=== PATIENT | female | born 1995 | race Caucasian/White ===

== ENCOUNTER 2018-08-31 19:40 | Outpatient (CLI) | payer MEDICAID, BC ==
[~2018-08-31] VITALS: Ht 165.1 cm; Wt 84.1 kg
--- NOTE | 2018-08-31 19:40 | NUR ---
G1 at 39week and 3 days presents to unit ambulatory with complaint of contractions every 5 and a half minutes. Pt reports that sometimes they feel a little painful but not enough to have her stop what she is doing. Pt was 1 cm in the office on the . Pt oriented to room and changed into gown. EFM and toco explained and applied. Admission assessment started. Vital signs obtained. 1944 SVE /-2
[2018-08-31] MEDS ORDERED: PRENATAL 191 CTB PO (19:54)
[2018-08-31] MEDS ORDERED: FERROUSAL325 MG PO (19:55)
[2018-08-31 20:00] VITALS: BP 133/80; PULSE 75; TEMP 97.7
[2018-08-31 20:30] VITALS: BP 123/79; PULSE 74
[2018-08-31 20:52] VITALS: BP 123/84; PULSE 86
--- NOTE | 2018-08-31 21:05 | NUR ---
SVE unchanged. Pt to discharge home at this time. Reviewed return precautions and discharge instructions. Pt verbalized understanding. Pt seen ambulating off unit with family.
== END 2018-08-31 21:05 | disposition home or self-care (01) ==
LOC: LDRO 19:40
DX: O62.9 Abnormality of forces of labor, unspecified (principal); Z3A.39 39 weeks gestation of pregnancy

== ENCOUNTER 2018-09-01 04:39 | Inpatient (IN) | payer BC, MEDICAID ==
[~2018-09-01] VITALS: Ht 165.1 cm; Wt 84.1 kg
[2018-09-01] VITALS (46 sets, daily range): BP systolic 99–196; BP diastolic 51–97; PULSE 63–139; TEMP 97.7–99.7
[~2018-09-01 04:39] MED LIST: FERROUSAL325 MG PO; PRENATAL 191 CTB PO
--- NOTE | 2018-09-01 04:50 | NUR ---
G1 at 39 weeks and 4 days arrives to unit ambulatory with complaint of contractions and bloody show. Pt was seen earlier in shift as a labor check and was discharged home after SVE /-2 x 2. Pt denies leaking of fluid and is having good movement. Pt denies headaches, blurry vision, or RUQ pain. Pt oriented to room and changed into gown. EFM and toco explained and applied. Vital signs obtained. Admission assessment started. Plan or care reviewed. 0500 SVE 2
[2018-09-01 07:28] LABS: BASO % 0.1 % (0.0-2.0); EOS # 0.1 (0.0-0.7); EOS % 0.5 % (0-4.0); GRAN # 11.4 (1.4-6.5); GRAN % 82.9 % (42.2-75.2); HEMATOCRIT 42.7 % (37.0-47.0); HEMOGLOBIN 13.9 g/dl (12.5-16.0); LYMPH # 1.2 (1.2-3.4); MEAN CELL VOLUME 89 fl (80.0-100.0); MEAN CORPUSCULAR HEMOGLOBIN 29 pg (27.0-31.0); MEAN CORPUSCULAR HGB CONC 33 g/dl (33.0-37.0); MEAN PLATELET VOLUME 9.9 fl (7.4-10.4); MONO # 0.9 (0.1-0.6); MONO % 6.7 % (1.7-9.3); PLATELET COUNT 273 K/mm3 (130-400); RED BLOOD COUNT 4.78 M/mm3 (4.10-5.30); REDCELL DISTRIBUTION WIDTH-CV 14.8 % (11.5-14.5)
--- NOTE | 2018-09-01 07:45 | NUR ---
0722- Pt asssited to sitting on side of bed for epidural placement. CRISTHIAN Munoz at bedside. Time out completed. 0724- FHR not tracing well due to maternal position. O2 sat monitor on and tracing maternal HR. 0733- Test dose by [facility] RO[employer] ATTENDANT, see anesthesia record. 0735- Pt assisted to semi-fowlers position with WL. EFM and TOCO on and tracing well. Pt tolerated procedure well.
--- NOTE | 2018-09-01 08:15 | NUR ---
0800- Pt assisted to LL with right leg up on stirrup.
--- NOTE | 2018-09-01 10:15 | NUR ---
1000- SVE by this RN, 9-/100/-1, Pt repositioned to RL with left leg up on stirrup. FHR decel noted down to 75bpm, lasting approximately 4mins. Pt repsoitioned to WL. IVF bolus initiated, O2 on at 10L via mask. Head of bed elevated. 1005- FHR noted back to baseline 115bpm.
--- NOTE | 2018-09-01 10:30 | NUR ---
1020- Dr Goodman at bedside. SVE with AROM, clear fluid noted, odorless. Pt complete, instructed by MD to begin pushing with UCs. Room prepped for delivery. 1030- Miner removed without difficutly. 1041- Pt begins pushing with UCs, this RN remains at bedside, coaches Pt through technique.
--- NOTE | 2018-09-01 11:45 | NUR ---
1131- FHR noted to be 70-85bpm, lasting approximately 80secs. Pt repositioned to WL with pillow, O2 on at 10L via mask. Pt insturcted to breathe through next UC to give baby a chance to recover, Pt tolerated well.
--- NOTE | 2018-09-01 12:00 | NUR ---
1150- This RN out to nurses station, Dr Goodman there, updated that baby is not moving well with pushing. Request MD to come evaluate. 1153- Pt continues pushing with UC. Dr Goodman performs vaginal exam. VO to start Pitocin at 2mu. 1155- Pitocin on and infusing at 2mu. MD out of room but remains on unit. This RN remains at bedside, assisting Pt with pushing.
--- NOTE | 2018-09-01 12:15 | NUR ---
1205- Pushing mirror brought to bedside per Pt request.
--- NOTE | 2018-09-01 13:20 | NUR ---
1307- Dr Goodman at nurses station, called to room for delivery. 1312- Carlos, Nursery RN at bedside. Pt and room prepped for delivery. Pt continues pushing with [facility]. 1320- of viable male infant. Placed on mother's abd where dried and stimulated, tended to by nursery. Pitocin off. Cord blood obtained. 1325- Spontaneous delivery of placenta, Pitocin started at 333ml/hr. Fundus massaged to firm by . 1st degree laceration repaired by . Pericare completed. Clean chux and ice pack to perineum. Bed put back together, Pt assisted sitting upwright in bed. Tolerated well. Bleeding WNL, VSS.
--- NOTE | 2018-09-01 14:55 | NUR ---
1445- Ice pack changed, Pt tolerated well.
--- NOTE | 2018-09-01 15:30 | NUR ---
1530- Pt ambulates to bathroom independently, unable to void at this time. Pericare explained and performed. Underwear, peripad on. Clean gown on. Pt ambulates to PP room without difficulty, oriented to room. Pt wishes to go to nursery to check on baby, ambulates with FOB. Pt tolerated well.
[2018-09-02 03:56] VITALS: BP 124/77; PULSE 78; TEMP 98.2
[2018-09-02 07:30] VITALS: BP 121/62; PULSE 92; TEMP 98.1
[2018-09-02] MEDS ORDERED: MOTRIN 800800 MG/TAB PO (08:47)
[2018-09-02] MEDS ORDERED: PERCOCET 325 MG1 TA2 PO (08:47)
[2018-09-02 11:30] VITALS: BP 119/67; PULSE 79; TEMP 98.5
[2018-09-02 22:00] VITALS: BP 113/61; PULSE 75; TEMP 98.3
[2018-09-03 08:18] VITALS: BP 115/80; PULSE 73; TEMP 98.5
--- NOTE | 2018-09-03 10:11 | NUR ---
Initial visit; Mom thanked Degree Clerk for offering congratulations and God's blessings for the of her son. Degree Clerk thanked family for choosing [facility].
--- NOTE | 2018-09-03 11:35 | NUR ---
1135- Discharge insturctions explained, Prescriptions given, Pt states she does not need Percocet since she has not been taking. Script taken and disposed of in shred box.
== END 2018-09-03 11:45 | disposition home or self-care (01) | DRG 807 ==
LOC: LDRO 04:39 → LDR 06:11 → OB 15:40
PROVIDERS: Obstetrics & Gynecology; ADMIT Obstetrics & Gynecology
PROC: 10E0XZZ Delivery of Products of Conception, External Approach (ICD-10-PCS; principal; 2018-09-01)
PROC: 0HQ9XZZ Repair Perineum Skin, External Approach (ICD-10-PCS; 2018-09-01)
DX: O70.0 First degree perineal laceration during delivery (principal); Z37.0 Single live birth; Z3A.39 39 weeks gestation of pregnancy; P02.5 Newborn affected by other compression of umbilical cord
CPT/HCPCS: J2590; J2795; J7120